=== PATIENT | male | born 1965 | race Caucasian/White ===

== ENCOUNTER 2018-06-07 17:50 | Emergency (ER) | payer OTHER, SELFPAY ==
[2018-06-07 18:02] VITALS: BP 118/82; PULSE 88; RESP 18; TEMP 36.2; O2SAT 98; BMI 27.8
--- NOTE | 2018-06-07 20:19 | DI.RAD.S_ITS ---
PROCEDURE: XR FINGER LT MIN 2V INDICATIONS: injury 5th digit TECHNIQUE: AP hand, 2 views of the fifth finger(s) acquired. COMPARISON: None. FINDINGS: Bones: No fractures or dislocations. Left fifth proximal interphalangeal joint is held in flexion. No suspicious bony lesions. Soft tissues: No suspicious soft tissue calcifications. No radiodense foreign body. IMPRESSION: 1. No fractures. 2. Flexion of the PIP joint may indicate tendon injury. Correlate clinically. Dictated by: Barbi Caba M.D. on 06/07/2018 at 20:59 Approved by: Barbi Caba M.D. on 06/07/2018 at 21:00
[2018-06-07] MEDS: TET,DIPH,PERTUSS(ACELL),VAC/PF 0.5 ML SYRINGE IM (20:31)
[2018-06-07 21:47] VITALS: BP 117/76; PULSE 81; RESP 18; O2SAT 98
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
== END 2018-06-07 21:57 | disposition home or self-care (01) ==
PROVIDERS: Emergency Provider Nurse Practitioner Family; PCP Internal Medicine
DX: S61.217A Laceration without foreign body of left little finger without damage to nail, initial encounter (principal)
CPT/HCPCS: 12001; 29130; 73140; 90471; 99283; 90715